=== PATIENT | female | born 1950 | race Caucasian/White ===

== ENCOUNTER → 2016-07-21 | Outpatient (CLI) | payer BC ==
[2016-07-21 14:57] LABS: BUN/CREATININE RATIO 20.83 (6-20); CALCIUM 8.9 mg/dL (8.7-10.7); CREATININE 1.2 mg/dL (0.50-1.20); POTASSIUM 4.3 meq/L (3.8-5.2)
== END ==
LOC: LAB 13:50
DX: I10 Essential (primary) hypertension (principal)
CPT/HCPCS: 36415; 80048

== ENCOUNTER 2016-07-22 13:05 | Emergency (ER) | payer BC ==
[2016-07-22 13:27] VITALS: RESP 12; TEMP 96.7
--- NOTE | 2016-07-22 13:58 | DI ---
HISTORY: Patient fell and hit back of her head eight days ago, positive loss of consciousness. Cont inued nausea. COMPARISON STUDIES: None available. TECHNIQUE: Contiguous axial 5 mm images were obtained from the vertex through the skull base without the use of contrast. Additional bone algorithm images were provided. 90 images. FINDINGS: Mild focal right frontal soft tissue swelling is noted (axial image 22). There is no assoc iated calviarial fracture. Brain parenchyma demonstrates normal morphology for patient's age. Proctor-wh ite differentiation is maintained. Ventricles and CSF containing spaces are within normal limits. No dense vessel sign, obscuration of the basal ganglia, loss of insular ribbon or other evidence of acut e vascular territorial infarction. There is no evidence of acute intracranial hemorrhage, herniation or hydrocephalus. Visualized portions of the skull base and craniocervical junction appear normal. Paranasal sinuses an d mastoid air cells are clear. Normal appearance of the orbits and intraorbital contents. IMPRESSION: 1. No evidence of acute intracranial abnormality. Further evaluation with MRI may be obtained for pe rsistent or worsening clinical symptoms.
--- NOTE | 2016-07-23 07:06 | PDOC ---
General Adult HPI - General Chief Complaint: Nausea / Vomiting / Diarrhea Stated Complaint: headache, nausea Date Seen by Provider: 07/22/16 Time Seen by Provider: 13:15 Source: POSITIVE: Patient, Spouse Exam Limitations: POSITIVE: No limitations Nurse's Notes Reviewed & Considered: Yes - History of Present Illness Initial Comment: The patient is a 65-year-old female. She states that 8 days ago she slipped in some snow falling backwards and striking the right occipital parietal area of her head. She states that she believes she was knocked unconscious and that she "awoke in the snow". She was alone at the time. She did call a friend who helped her into her home. Friend states that at that time the patient reportedly would ask the same questions repeatedly. She has since been alert and oriented. She does complain of some continued headache at the site of her trauma and some continued nausea. She does state she had some diarrhea several days ago, but this is resolved. No focal sensory or motor signs or symptoms. Have you received a tetanus shot in the past 10 years?: Yes Body Location Affected: REPORTS: Head Timing: REPORTS: Abrupt Duration: >1 week (8 days STRADDLE BUG) Severity: Moderate Quality: REPORTS: "Pain", Tenderness (Scalp tenderness) Context: REPORTS: Recent Trauma (As above) Modifying Factors: worse with: Nothing, Analgesics, Antacids, Breathing, Coughing, Defecating, Vomiting, Eating, Exercise, Lying down, Urinating, Palpation, Movement, Rest, Upright Position, Walking, Remaining Still, Other Similar Symptoms Previously: No Recent Care Received: REPORTS: Denies Any Prior Injuries Related to Current Complaint?: Yes (as above) - Patient Home Medications Home Medications: Home Medications Levothyroxine Sodium 1 tab PO DAILY #30 tab 07/22/13 Loratadine 1 tab PO DAILY tab 07/22/13 Magnesium Citrate 1 tab PO DAILY #30 tab 07/22/13 Prasterone (Dhea) [Dhea] 1 cap PO DAILY cap 07/22/13 Progesterone,Micronized [Progesterone] 1 cap PO DAILY cap 07/22/13 Vitamin B Complex [B Complex] 1 tab PO DAILY #30 tab 07/22/13 Vitamin K2 2 tab PO BID tab 07/22/13 Estradiol [Estrace] 1 gm VAGINAL 3XW tube 10/20/13 Olmesartan/Hydrochlorothiazide [Benicar Hct] 1 tab PO QD #30 tab 05/24/16 Metoprolol Succinate 1 tab PO QD #90 tab 05/29/16 Valacyclovir HCl [Valacyclovir] 1 tab PO QD PRN #30 tab 05/29/16 - Patient Allergies Allergies/Adverse Reactions: Allergies Allergy/AdvReac Type Severity Reaction Status Date / Time ibuprofen Allergy Intermediate ITCHING Verified 07/22/16 13:09 Past Medical History - heen HEENT History: Denies History Cardiovascular History: Hypertension, Hyperlipidemia Respiratory History: Denies History Gastrointestinal History: Denies History Genitourinary History: Denies History Endocrine History: Denies History Musculoskeletal History: Denies History Prosthesis or Implant: No Neurological History: Denies History Blood Disorders: Denies History Psychiatric History: Denies History History of Sexually Transmitted Diseases: No Female Reproductive History: Denies History Obstetrical History: Denies History Cancer History: Denies History In Past Year Been Physically Harmed or Verbally Threatened: No History of MDRO: No History of Other Communicable Diseases: No Tobacco Use: Former Smoker Alcohol Use: Occasionally Substance Use Type: None Previous Surgical History: No Significant Family History: No pertinent family hx Past Medical History Reviewed: Reviewed - No Changes ROS - Limitations ROS Limitations: No Limitations Constitution: REPORTS: Denies Symptoms Cardiovascular: REPORTS: Denies Cardiac Symptoms Respiratory: REPORTS: Denies Resp Symptoms Neurological: REPORTS: Headache Gastrointestinal: REPORTS: Denies GI Symptoms Endocrine: REPORTS: Denies Symptoms Musculoskeletal: REPORTS: Denies MS Symptoms Genitourinary: REPORTS: Denies Symptoms Eyes: REPORTS: Denies Symptoms ENT: REPORTS: Denies Symptoms Skin: REPORTS: Denies Skin Symptoms Lympathic: REPORTS: Denies Lympathic Symptoms Immunologic: POSITIVE: Denies Symptoms Psychiatric: POSITIVE: Denies Psych Symptoms General Adult Exam - General Appearance General Appearance: POSITIVE: Alert, Cooperative, No Acute Distress, No Evidence of Trauma - HEENT HEENT: POSITIVE: Eyes Inspection Nml, Ears Inspection Nml, Nose Inspection Nml, Oral/Dental Inspect. Nml, Pharynx Inspect. Nml, PERRL, EOMI. NEGATIVE: Head Inspection Nml (Some tenderness on palpation right occipital area as side a resolving scalp hematoma) - Pupils Pupil Size: 4 mm: Bilateral (PERRLA) - Neck Neck: POSITIVE: Normal Inspection, Thyroid Normal - Respiratory Respiratory: POSITIVE: No Respiratory Distress, Breath Sounds Normal, Chest Non- Tender - Cardiovascular Cardiovascular: POSITIVE: Regular Rate & Rhythm, No Murmur, No Gallop, PMI Normal Peripheral Pulses: Radial (R): 2+, Radial (L): 2+ - Abdomen Abdomen: Soft: (All Quadrants), Normal Bowel Sounds: (All Quadrants), Denies Tenderness: (All Quadrants), No Splenomegaly: (All Quadrants), No Hepatomegaly: (All Quadrants), No Guarding: (All Quadrants), No Rebound: (All Quadrants), No Palpable Pulse: (All Quadrants), No Palpabale Mass: (All Quadrants), No Distention: (All Quadrants), No Rigidity: (All Quadrants) - Back Back: POSITIVE: Normal Inspection - Skin Skin: POSITIVE: Normal Color, Warm, Dry, No Rash - Extremities Extremity: Non-Tender: (All Extremities), Normal ROM: (All Extremities), Normal Inspection: (All Extremities) - Neurological / Psychological Neurological: POSITIVE: Oriented X3, former hand Normal As Tested, Motor Normal, Sensation Normal, 5, 6 Images - Head Head: 1 - Resolving scalp hematoma General Adult Progress - Results Reviewed by me Xrays/CTs/US Reviewed by me: Yes Discussed with Radiologist: Yes Radiology Findings: CT scan head without contrast normal - Patient's Progress Pain Medication Addressed: POSITIVE: Yes (Recommended Advil or Tylenol) School/Work Release Addressed: POSITIVE: Yes (Recommended patient avoid activities in which she is likely to sustain head trauma for the next couple of months) Re-Examine Time: 14:47 Status: POSITIVE: Unchanged, Re-Examined Antibiotics Given: No - Consult Counseled: POSITIVE: Patient, Family, RE: Radiology Results, RE: DX, RE: Need for F/U Patient Care Time - Estimated PCT Patient Care Time (In Minutes): 28 Vital Signs - VS Reviewed Vital Signs Reviewed: Yes Discharge Clinical Impression: Concussion Discharge Disposition: Discharged to Home Condition: Good Patient Instructions Given at Discharge: Concussion (ED) Additional Instructions: I believe you have had a concussion. The CT scan of your head is normal. I see no resulting neurologic deficits. I believe you're going to be fine. Take Tylenol every 6 hours as necessary for headache. Rest for a couple of days. Avoid any activities were your likely to again sustained head trauma. Return here anytime if condition worsens, or as necessary. Follow Up With: BAILEY AVILEZ [Primary Care Provider] - (Instructions as above. Return here as necessary.)
== END 2016-07-22 14:47 | disposition home or self-care (01) ==
LOC: ER 13:05
DX: S06.0X9A Concussion with loss of consciousness of unspecified duration, initial encounter (principal); S00.03XA Contusion of scalp, initial encounter; R11.0 Nausea; W00.0XXA Fall on same level due to ice and snow, initial encounter
CPT/HCPCS: 70450; 99282; 99283